=== PATIENT | female | born 1960 | race Caucasian/White ===

== ENCOUNTER → 2016-05-26 | Outpatient (CLI) | payer OTHER ==
--- NOTE | 2016-05-28 09:49 | MM ---
Reason for exam: screening (asymptomatic). Last mammogram was performed 1 year ago. History: Family history of breast cancer in aunt and premenopausal breast cancer in cousin at age 40. Took hormonal contraceptives for 28 years beginning at age 17. Taking estrogen for 2 years. Taking progesterone for 2 years. Physical Findings: A clinical breast exam by your physician is recommended on an annual basis and results should be correlated with mammographic findings. MG 3D Screening Mammo W/Cad Bilateral CC and MLO view(s) were taken. Prior study comparison: May 21, 2015, bilateral MG screening mammo w CAD. May 18, 2014, bilateral MG screening mammo w CAD. There are scattered fibroglandular densities. There is no discrete abnormality. No significant changes when compared with prior studies. ASSESSMENT: Negative, BI-RAD 1 RECOMMENDATION: Routine screening mammogram of both breasts in 1 year.
== END | disposition home or self-care (01) ==
LOC: RADMAMWWP 12:31
PROVIDERS: ATTEND Obstetrics & Gynecology
DX: Z12.31 Encounter for screening mammogram for malignant neoplasm of breast (principal); Z80.3 Family history of malignant neoplasm of breast
CPT/HCPCS: 77063; G0202

== ENCOUNTER → 2017-06-23 | Outpatient (CLI) | payer OTHER ==
--- NOTE | 2017-06-24 09:39 | MM ---
Reason for exam: screening (asymptomatic). Last mammogram was performed 1 year and 1 month ago. History: Family history of breast cancer in aunt and premenopausal breast cancer in cousin at age 40. Took hormonal contraceptives for 28 years beginning at age 17. Taking estrogen for 2 years. Taking progesterone for 2 years. Physical Findings: A clinical breast exam by your physician is recommended on an annual basis and results should be correlated with mammographic findings. MG 3D Screening Mammo W/Cad Bilateral CC, MLO, and XCCL view(s) were taken. Prior study comparison: May 26, 2016, bilateral MG 3d screening mammo w/cad. May 21, 2015, bilateral MG screening mammo w CAD. There are scattered fibroglandular densities. No significant changes when compared with prior studies. ASSESSMENT: Benign, BI-RAD 2 RECOMMENDATION: Routine screening mammogram of both breasts in 1 year.
== END | disposition home or self-care (01) ==
LOC: RADMAMWWP 11:20
PROVIDERS: ATTEND Obstetrics & Gynecology
DX: Z12.31 Encounter for screening mammogram for malignant neoplasm of breast (principal)
CPT/HCPCS: 77063; 77067

== ENCOUNTER → 2018-08-17 | Outpatient (CLI) | payer OTHER ==
--- NOTE | 2018-08-18 11:59 | MM ---
Reason for exam: screening (asymptomatic). Last mammogram was performed 1 year and 2 months ago. History: Family history of breast cancer in aunt and premenopausal breast cancer in cousin at age 40. Took hormonal contraceptives for 28 years beginning at age 17. Taking estrogen for 2 years. Taking progesterone for 2 years. Physical Findings: A clinical breast exam by your physician is recommended on an annual basis and results should be correlated with mammographic findings. MG Screening Mammo w CAD Bilateral CC and MLO view(s) were taken. Prior study comparison: June 23, 2017, bilateral MG 3d screening mammo w/cad. May 26, 2016, bilateral MG 3d screening mammo w/cad. There are scattered fibroglandular densities. No suspicious abnormality. No significant changes when compared with prior studies. ASSESSMENT: Negative, BI-RAD 1 RECOMMENDATION: Routine screening mammogram of both breasts in 1 year.
== END | disposition home or self-care (01) ==
LOC: RADMAMWWP 14:01
PROVIDERS: ATTEND Obstetrics & Gynecology
DX: Z12.31 Encounter for screening mammogram for malignant neoplasm of breast (principal); Z80.3 Family history of malignant neoplasm of breast
CPT/HCPCS: 77067

== ENCOUNTER → 2021-07-02 | Outpatient (CLI) | payer OTHER ==
--- NOTE | 2021-07-02 12:42 | XR ---
EXAMINATION TYPE: XR chest 2V DATE OF EXAM: 07/02/2021 COMPARISON: 01/30/2016 HISTORY: 61-year-old female [id number], cough TECHNIQUE: Frontal and lateral views FINDINGS: Heart normal size. Aorta and pulmonary vasculature within normal limits. No consolidation or pleural effusion. IMPRESSION: No acute cardiopulmonary process.
== END | disposition home or self-care (01) ==
LOC: RADXRYALE 10:11
PROVIDERS: ATTEND Physician Assistant Medical
DX: R05.9 Cough, unspecified (principal)
CPT/HCPCS: 71046

== ENCOUNTER → 2021-07-23 | Outpatient (CLI) | payer OTHER ==
--- NOTE | 2021-07-24 12:31 | ECHOF ---
Referral Reason:R06.02 SOB MEASUREMENTS -------- HEIGHT: 160.0 cm WEIGHT: 90.7 kg BP: IVSd: 1.3 cm (0.6 - 1.1) LVIDd: 3.4 cm (3.9 - 5.3) LVPWd: 1.1 cm (0.6 - 1.1) EDV(Teich): 47 ml IVSs: 1.2 cm LVIDs: 1.8 cm LVPWs: 1.4 cm %IVS Thck: -5 % ESV(Teich): 10 ml EF(Teich): 79 % %FS: 46 % SV(Teich): 37 ml RVIDd: 2.3 cm (< 3.3) LALs A4C: 4.8 cm LAAs A4C: 16.0 cm LAESV A-L A4C: 45 ml LAESV MOD A4C: 39 ml LALs A2C: 5.5 cm LAAs A2C: 16.1 cm LAESV A-L A2C: 40 ml LAESV MOD A2C: 38 ml LAESV(A-L): 45 ml LAESV Index (A-L): 23.51 ml/m Ao Diam: 2.5 cm (2.0 - 3.7) LA Diam: 3.2 cm (2.7 - 3.8) AV Cusp: 1.4 cm (1.5 - 2.6) EPSS: 0.4 cm MV E Nicolas: 0.91 m/s MV DecT: 258 ms MV Dec Kern: 3.5 m/s MV A Nicolas: 1.08 m/s MV E/A Ratio: 0.84 MV PHT: 75 ms LVOT Vmax: 1.23 m/s LVOT maxP.10 mmHg AV Vmax: 1.32 m/s AV maxP.93 mmHg TR Vmax: 1.68 m/s TR maxP.26 mmHg RAP: 5.00 mmHg RVSP: 16.26 mmHg MV EF SLOPE: 41.03 mm/s (70 - 150) MV EXCURSION: 14.29 mm (> 18.000) FINDINGS -------- Sinus rhythm. This was a technically adequate study. The left ventricular size is normal. There is mild concentric left ventricular hypertrophy. Overa ll left ventricular systolic function is normal with, an EF between 55 - 60 %. The right ventricle is normal in size. Normal LA size by volume 22+/-6 ml/m2. The right atrial size is normal. Interatrial and interventricular septum intact. There is no evidence of aortic regurgitation. There is no evidence of aortic stenosis. No mitral regurgitation. Mild tricuspid regurgitation present. There is no evidence of pulmonary hypertension. The right v entricular systolic pressure, as measured by Doppler, is 16.26mmHg. Trace/mild (physiologic) pulmonic regurgitation. The aortic root size is normal. Normal inferior vena cava with normal inspiratory collapse consistent with estimated right atrial pre ssure of 5 mmHg. There is no pericardial effusion. CONCLUSIONS -------- 1. The left ventricular size is normal. 2. There is mild concentric left ventricular hypertrophy. 3. Overall left ventricular systolic function is normal with, an EF between 55 - 60 %. 4. Mild tricuspid regurgitation present. 5. Trace/mild (physiologic) pulmonic regurgitation. MACHINE BUILDER: Yana Chatman RDCS
== END | disposition home or self-care (01) ==
LOC: RADECHMAIN 14:07
PROVIDERS: ATTEND Family Medicine
DX: I34.0 Nonrheumatic mitral (valve) insufficiency (principal); R06.02 Shortness of breath
CPT/HCPCS: 93306

== ENCOUNTER → 2021-07-23 | Outpatient (CLI) | payer OTHER ==
--- NOTE | 2021-07-24 12:41 | MM ---
Reason for exam: screening (asymptomatic). Last mammogram was performed 2 years and 11 months ago. History: Family history of breast cancer in aunt and premenopausal breast cancer in cousin at age 40. Took hormonal contraceptives for 28 years beginning at age 17. Taking estrogen for 2 years. Taking progesterone for 2 years. Physical Findings: A clinical breast exam by your physician is recommended on an annual basis and results should be correlated with mammographic findings. MG 3D Screening Mammo W/Cad Bilateral CC, MLO, and XCCL view(s) were taken. Prior study comparison: August 17, 2018, bilateral MG screening mammo w CAD. June 23, 2017, bilateral MG 3d screening mammo w/cad. The breast tissue is almost entirely fat. No significant changes when compared with prior studies. ASSESSMENT: Benign, BI-RAD 2 RECOMMENDATION: Routine screening mammogram of both breasts in 1 year.
== END | disposition home or self-care (01) ==
LOC: RADMAMWWP 11:14
PROVIDERS: ATTEND Obstetrics & Gynecology
DX: Z12.31 Encounter for screening mammogram for malignant neoplasm of breast (principal)
CPT/HCPCS: 77063; 77067

== ENCOUNTER → 2023-05-20 | Outpatient (CLI) | payer OTHER ==
--- NOTE | 2023-05-22 15:56 | MM ---
Reason for Exam: Screening (asymptomatic). Last mammogram was performed 1 year(s) and 10 month(s) ago. Patient History: Menarche at age 13. First Full-Term at age 17. Postmenopausal. Patient used Estrogen for 2 years. Patient used Progesterone for 2 years. Hormonal Contraceptives for 28 years from age 17 until age 45. Maternal cousin had breast cancer, age 40. Paternal aunt had breast cancer, age 65. Risk Values: Renetta 5 year model risk: 1.1%. NCI Lifetime model risk: 5.0%. Prior Study Comparison: 06/23/2017 Bilateral Screening Mammogram, [facility]. 08/17/2018 Bilateral Screening Mammogram, [facility]. 07/23/2021 Bilateral Screening Mammogram, [facility]. Tissue Density: There are scattered fibroglandular densities. Findings: Analyzed By CAD. Pattern appears symmetrical and stable. Benign scattered punctate calcifications are present bilaterally. No significant interval changes are evident No suspicious groups of microcalcifications, spiculated or lobular masses, architectural distortion or other secondary signs of malignancy are mammographically apparent. Overall Assessment: Benign, BI-RAD 2 Management: Screening Mammogram of both breasts in 1 year. A negative mammogram report should not preclude additional follow up of suspicious palpable abnormalities. Patient should continue monthly self breast exam. A clinical breast exam by your physician is recommended on an annual basis and results should be correlated with mammographic findings. Electronically signed and approved by: Duy Ba D.O. Radiologis
== END | disposition home or self-care (01) ==
LOC: RADMAMWWP 10:09
PROVIDERS: ATTEND Obstetrics & Gynecology
DX: Z12.31 Encounter for screening mammogram for malignant neoplasm of breast (principal); Z78.0 Asymptomatic menopausal state; Z80.3 Family history of malignant neoplasm of breast
CPT/HCPCS: 77063; 77067

== ENCOUNTER → 2023-08-18 | Outpatient (CLI) | payer OTHER ==
[2023-08-18 16:20] LABS: Basophils # (A) 0.03 X 10*3/uL (0.00-0.10); Basophils % (A) 0.6 %; Eosinophils # (A) 0.09 X 10*3/uL (0.04-0.35); Eosinophils % (A) 1.7 %; HCT 39.5 % (37.2-46.3); HGB 12.2 g/dL (12.0-15.0); Lymphocytes # (A) 1.44 X 10*3/uL (0.90-5.00); Lymphocytes % (A) 26.6 %; MCH 24.5 pg (27.0-32.0); MCHC 30.9 g/dL (32.0-37.0); MCV 79.3 FL (80.0-97.0); Mean Platelet Volume 10.1 FL (9.5-12.2); Monocytes # (A) 0.39 X 10*3/uL (0.20-1.00); Monocytes % (A) 7.2 %; NRBC Per 100 WBC 0 X 10*3/uL (0.00-0.01); Neutrophils # (A) 3.44 X 10*3/uL (1.80-7.70); Neutrophils % (A) 63.3 %; Platelet Count 246 X 10*3/uL (140-440); RBC 4.98 X 10*6/uL (4.10-5.20); WBC 5.42 X 10*3/uL (4.50-10.00)
[2023-08-18 16:45] LABS: ALT 26 U/L (8-44); AST 17 U/L (13-35); Albumin 4.2 g/dL (3.8-4.9); Albumin/Globulin Ratio 1.56 Ratio (1.60-3.17); Alkaline Phosphatase 94 U/L (41-126); BUN/Creat Ratio 17.62 Ratio (12.00-20.00); Blood Urea Nitrogen 14.1 mg/dL (9.0-27.0); Calcium 9.6 mg/dL (8.7-10.3); Chloride 103 mmol/L (96-109); Chol/HDL Ratio 2.93 Ratio; Globulin 2.7 g/dL (1.6-3.3); Glucose 107 mg/dL (70-110); LDL Cholesterol,Calculated 157.3 mg/dL (0.0-131.0); Potassium 4.8 mmol/L (3.5-5.5); Sodium 139 mmol/L (135-145); Total Bilirubin 0.3 mg/dL (0.3-1.2); Total Protein 6.9 g/dL (6.2-8.2); VLDL Calculation 16.62 mg/dL (5.00-40.00)
== END | disposition home or self-care (01) ==
LOC: LABWHC1 11:15
PROVIDERS: ATTEND Family Medicine
DX: Z00.00 Encounter for general adult medical examination without abnormal findings (principal); Z13.29 Encounter for screening for other suspected endocrine disorder; Z13.228 Encounter for screening for other metabolic disorders; F41.1 Generalized anxiety disorder; E78.2 Mixed hyperlipidemia; E55.9 Vitamin D deficiency, unspecified
CPT/HCPCS: 36415; 80053; 80061; 82306; 84443; 85025

== ENCOUNTER → 2023-09-28 | Outpatient (CLI) | payer OTHER ==
--- NOTE | 2023-09-28 15:45 | XR ---
EXAMINATION TYPE: XR pelvis AP view DATE OF EXAM: 09/28/2023 COMPARISON: None HISTORY: Left hip pain left groin pain TECHNIQUE: AP pelvis FINDINGS: Symphysis pubis and sacroiliac joints are normal. Femoral heads articular with the acetabul um. Joint spaces are preserved. No acute fractures are evident. There is some degenerative change in the lower lumbar spine. IMPRESSION: 1. No acute osseous abnormality AP pelvis.
--- NOTE | 2023-09-28 15:46 | XR ---
EXAMINATION TYPE: XR Hip Complete LT DATE OF EXAM: 09/28/2023 COMPARISON: None HISTORY: Left hip pain TECHNIQUE: 2 view left hip FINDINGS: Femoral head articulates with the acetabulum. Joint space is preserved. No acute fracture o r dislocation is evident. Graft follow up exams can be performed as clinically indicated IMPRESSION: 1. No acute osseous abnormality left hip.
== END | disposition home or self-care (01) ==
LOC: RADXRYALE 15:20
PROVIDERS: ATTEND Family Medicine
DX: M25.552 Pain in left hip (principal); R10.32 Left lower quadrant pain
CPT/HCPCS: 72170; 73502

== ENCOUNTER → 2024-08-18 | Outpatient (CLI) | payer OTHER ==
--- NOTE | 2024-08-18 17:20 | BD ---
EXAMINATION TYPE: Axial Bone Density DATE OF EXAM: 08/18/2024 CLINICAL HISTORY: 64 years old Female. ICD-10 CODE: N95.1 MENOPAUSAL AND FEMALE CLIMA , Additional History: Height: 62.5 Weight: 202.3 FRAX RISK QUESTIONS: Alcohol (3 or more units per day): no Family History (Parent hip fracture): no Glucocorticoids (More than 3mos): no (Ex: prednisone, prednisolone, methylprednisolone, dexamethasone, and hydrocortisone). History of Fracture in Adulthood: knee, lt wrist, Secondary Osteoporosis: 1. Type 1 Diabetes: no 2. Hyperthyroidism: no 3. Menopause before 45: yes 4. Malnutrition: no 5. Chronic liver disease: no Rheumatoid Arthritis: no Current Tobacco Use: no RISK FACTORS HISTORY OF: Hip Fracture (Right/Left): no Spine Fracture: no History of Wrist Fracture: lt wrist When: 1979 Surgery to Spine/Hip(right/left)/Wrist (right/left): no MEDICATIONS: Thyroid Medications: no Osteoporosis Medications:no EXAM MEASUREMENTS: Bone mineral densitometry was performed using the [employer] System. Bone mineral density as measured about the Lumbar spine is: ----- L1-L4(G/cm2): 1.183 T Score Values are as follows: ----- L1: -2.0 ----- L2: -0.5 ----- L3: 0.4 ----- L4: 1.4 ----- L1-L4: 0.0 Z Score Values are as follows: ----- L1: -1.4 ----- L2: 0.0 ----- L3: 0.9 ----- L4: 1.9 ----- L1-L4: 0.6 Bone mineral density has: decreased -0.8 % since study of: 08/15/2021 Bone mineral density about the R hip (g/cm2): 0.953 Bone mineral density about the L hip (g/cm2): 0.967 T Score values are as follows: -----R Neck: -1.1 -----L Neck: -1.1 -----R Total: -0.4 -----L Total: -0.3 Z Score values are as follows: -----R Neck: -0.3 -----L Neck: -0.3 -----R Total: 0.0 -----L Total: 0.1 Bone mineral density has: decreased -4.0 % since study of: 08/15/2021 FRAX%s: The graph provided illustrates a 12.2% chance for a major osteoporotic fx and a 0.9% chance f or the hips probability for fx in 10 years time. IMPRESSION: Osteopenia (T Score between -2.5 and -1). There is slightly increased risk of fracture and the patient may be considered for treatment. Re-Screen 2-5 years. NOTE: T-SCORE=SD OF THE YOUNG ADULT MEAN. [facility], , 08/18/2024 5:18 PM
--- NOTE | 2024-08-18 17:45 | MM ---
Reason for Exam: Screening (asymptomatic). Last mammogram was performed 1 year(s) and 3 month(s) ago. Patient History: Menarche at age 13. First Full-Term at age 17. Postmenopausal. Patient used Estrogen for 2 years. Patient used Progesterone for 2 years. Hormonal Contraceptives for 28 years from age 17 until age 45. Maternal cousin had breast cancer, age 40. Paternal aunt had breast cancer, age 65. Risk Values: Renetta 5 year model risk: 1.1%. NCI Lifetime model risk: 4.9%. Prior Study Comparison: 08/17/2018 Bilateral Screening Mammogram, [facility]. 07/23/2021 Bilateral Screening Mammogram, [facility]. 05/20/2023 Bilateral MG 3D screening mammo w/cad, [facility]. Tissue Density: The breasts are almost entirely fatty. Findings: Analyzed By CAD. There is no suspicious group of microcalcifications or new suspicious mass in either breast. Overall Assessment: Negative, BI-RAD 1 Management: Screening Mammogram of both breasts in 1 year. Patient should continue monthly self-breast exams. A clinical breast exam by your physician is recommended on an annual basis. This exam should not preclude additional follow-up of suspicious palpable abnormalities. Note on Renetta scores and lifetime risk: 1. A Renetta score greater than 3% is considered moderate risk. If this is the case, consider specialist referral to assess eligibility for a risk reducing agent. 2. If overall lifetime risk for the development of breast cancer is 20% or higher, the patient may qualify for future screening with alternating mammogram and breast MRI. [facility], , 08/18/2024 5:42 PM. Electronically signed and approved by: Ej Calle M.D. Radiologist
== END | disposition home or self-care (01) ==
LOC: RADBDWWP 15:12
PROVIDERS: ATTEND Obstetrics & Gynecology
DX: Z12.31 Encounter for screening mammogram for malignant neoplasm of breast (principal); R92.313 Mammographic fatty tissue density, bilateral breasts; M85.89 Other specified disorders of bone density and structure, multiple sites; Z78.0 Asymptomatic menopausal state; Z80.3 Family history of malignant neoplasm of breast
CPT/HCPCS: 77063; 77067; 77080